=== PATIENT | male | born 1965 | race Caucasian/White ===

== ENCOUNTER → 2016-11-15 | Outpatient (CLI) | payer OTHER | LOC: OD 13:26 | PROVIDERS: ATTEND Urology | DX: R97.20 Elevated prostate specific antigen [PSA] (principal) | CPT/HCPCS: 36415; 84153 ==

== ENCOUNTER → 2019-01-22 | Outpatient (CLI) | payer OTHER ==
--- NOTE | 2019-01-22 09:45 | ST Modified Barium Swallow ---
Recommendation - Recommendations Recommendations: Recommend follow up with current speech therapy to establish exercise and strategies for mild to moderate oropharyngeal dysphagia. Short course expected, 2-3 sessions. Medical Diagnoses - Medical Diagnoses Medical Diagnosis Description & ICD-10 Code(s): dysphagia R13.10 Other Medical Diagnoses/Co-Morbidities: per patient report: Parkinson's Dse, Joint pain, thyroid cancer (removed 2009), HTN, High cholesterol, Cholecystectomy, Arthroscopy of right knee (2000), gal bladder removal, remove nodule on L forearm (2009) ST Modified Barium Swallow - General Date: 01/22/19 Referring Physician: Bere Escalante NP Date of Onset: 12/29/17 - approximate onset date Reason for Referral: difficulty swallowing solids. - History History obtained from: Patient -: Medical - per patient report: Patient was diagnosed with Parkinson's disease in 2009. Reports difficulty swallowing foods occasionally and having to "take a drink to wash it down". Patient reports 80 pound weight loss due thyroid medication. Reports taking small bites and sips and drinking through a straw to reduce anterior loss. Patient is currently receiving speech therapy to address dysarthria and voice. Symptoms worse when tired including increased tremor. Does Parkinson's Boxing class. Medications: per patient report: Azilect, Carbidopa/levodopa, Synthroid, simvastatin, Lisinopril, asprin Allergies: per patient report: no food or medication allergies, allergic to cockroaches and oak - Functional Status Prior Functional Status: INDEPENDENT: feeding Current Functional Limitations: feeding - globus with solids - Subjective Patient/caregiver goal(s): safe swallow Cognitive-Linguistic Function: Functional Speech Intelligibility: Mildly dysarthric Current Nutritional Means: PO Current PO diet: Regular - taking small bites Current symptoms: c/o Globus sensation Pain: Patient reports, 1/5 - shoulder pain, chronic - Objective Assessment: Upright, Left Lateral - Food Trials Used Food trials used: Thin liquids, Pureed, Regular The patient: Was Able to Self Feed - Oral-Motor Skills Dentition: Full Velo-pharyngeal function: Unremarkable Laryngeal Function: clear voicing - intermittent weakness in voice - Assessment Oral prep: Normal Labial closure: Adequate Leakage: None Mastication: Adequate Lingual Movement: Normal Oral stage: Normal for this Procedure - Pharyngeal Stage Initiation of Pharyngeal Stage Reflex: Normal Decreased laryngeal elevation: No Reduced Velopharyngeal Closure: no Reduced pressure generation: Yes reduced tongue-based retraction: Yes Pre-swallow pooling in valleculae: None Pre-Swallow pooling in pyriforms: None Reduced Thyro-Hyoid approximation: Yes Reduced epiglottic excursion: Yes - mild Reduced pharyngeal peristalsis/contraction: Yes Multiple Swallows with: Cleared w/ Liquid Assist Post-swallow residulas vallecular: Mild Post-Swallow residuals in pyriforms: Moderate Post-Swallow Residuals: Posterior pharyngeal wall, tongue-base Reduced Cricopharyngeal opening: No - Fall Risk Assessment Medications/Conditions that increase fall risks include: Antidepressants, sedatives, anti-arrhythmic, diuretic, benzodiazipenes, neuroleptics. BP regulation problems, cardiac problems, balance or gait deficits, neurological problems. Fall Risk Actions Taken: No action needed - Behavioral Observations During evaluation process patient: was pleasant, was cooperative, able to answer questions - Treatment / Educational Needs: Treatment/Education Needs: Treatment consisted of patient education on the role of the Speech Pathologist. Patient's plan of care and golas were communicated as well as scheduling and attendance policies. Recommendations for initial home program were shared. Patient demonstrated understanding and verbalized agreement. - Impression/Summary Laryngeal Penetration: No Tracheal Aspiration: no Effective compensatory strategies: hard swallow Patient presents with: Oral-Pharyngeal dysph., Mild-Moderate Risk of Aspiration: Mild Evaluation and Findings: Patient presents with mild to moderate oropharyngeal dysphagia, characterized by mildly reduced movement of tongue base retraction, pharyngeal constriction, and epiglottic inversion. This resulted in residue in pharynx, residue increased as texture of trials increased. With puree trial, residue cleared with dry swallow. For terence cracker trial, required liquid wash to clear residue. - Recommendations Solid diet recommendations: Regular Liquid Diet Modification: Thin Dysphagia therapy with FLOODPLAIN MANAGER: f/u with current thera. Recommended techniques: Fully Upright During Meal, Alternate Bites/Sips Supervision: Independent Information, Precautions and Recommendations: Patient (Written), Patient (Verbal) - Time Total Time: 20 - Plan of Care Strategies to optimize patient understanding include:: ongoing assessment of educational needs, implementation of educational strategies, and re-education. - - -: Thank you for the opportunity to work with this patient and his/her family. Should you have any questions about this patient's plan or progress, I can be reached at [phone].
--- NOTE | 2019-01-22 09:51 | RADIOLOGY REPORT (SQ) ---
EXAM DESCRIPTION: LIBIA SWALLOW COMPLETED DATE/TIME: 01/22/2019 9:10 am REASON FOR STUDY: DYSPHAGIA (R13.10) R13.10 DYSPHAGIA, UNSPECIFIED COMPARISON: None. TECHNIQUE: Videofluoroscopic swallowing examination was performed in conjunction with speech patholo gy. Videofluoroscopic imaging was obtained and reviewed and these are the findings: RADIATION DOSE: Fluoro time 1.5 minutes 3 images saved to PACS. LIMITATIONS: None FINDINGS: The patient was brought into the fluoro room and placed upright on a modified barium swall ow chair. The patient was then given multiple consistencies mixed with barium to swallow under live fluoroscopic video guidance. According to the Speech Pathologist there was no penetration or aspirat ion. Please refer to the speech pathology report for further details. IMPRESSION: NO EVIDENCE OF PENETRATION OR ASPIRATION. PLEASE SEE SPEECH PATHOLOGIST REPORT FOR OTHER FINDINGS AND RECOMMENDATIONS. COMMENT: None Quality ID [id number]: Final reports for procedures using fluoroscopy that document radiation exposure virgil nik, or exposure time and number of fluorographic images (if radiation exposure indices are not avail able) TECHNICAL DOCUMENTATION: JOB ID: [id number] [employer]- All Rights Reserved Reading location - IP/workstation name: [email or web address] [id number]
== END ==
LOC: RAD 08:11
PROVIDERS: ATTEND Nurse Practitioner Family
DX: R13.10 Dysphagia, unspecified (principal)
CPT/HCPCS: 74230